=== PATIENT | female | born 1980 | race Caucasian/White ===

== ENCOUNTER 2018-01-25 11:59 | Emergency (ER) | payer OTHER ==
[2018-01-25 12:02] VITALS: BMI 23.2
[2018-01-25 12:03] VITALS: BP 137/94; PULSE 77; RESP 16; TEMP 98; O2SAT 100
--- NOTE | 2018-01-25 12:33 | ED PDOC ---
HPI: Allergic Reaction Time Seen by Provider: 01/25/18 12:18 Chief Complaint (Nursing): Abnormal Skin Integrity Chief Complaint (Provider): Allergic reaction History Per: Patient History/Exam Limitations: no limitations Onset/Duration Of Symptoms: Days (15 days) Current Symptoms Are (Timing): Still Present Additional Complaint(s): Pt. with itching to body and hands for 15 days. Rashes on hands/fingers and not on body. Pt. with no chest pain, dyspnea, weakness, dizziness, pain. No facial itching or rash. No swelling. Pt. denies any new food, drinks, lotion, or new product, but came from [place] 30 days ago. Had no issues for 15 days and then symptoms started. Past Medical History Reviewed: Nursing Documentation, Vital Signs Vital Signs: Last Vital Signs Temp 98 F 01/25/18 12:02 Pulse 77 01/25/18 12:02 Resp 16 01/25/18 12:02 BP 137/94 H 01/25/18 12:02 Pulse Ox 100 01/25/18 12:02 - Medical History PMH: No Chronic Diseases - Surgical History Surgical History: No Surg Hx - Family History Family History: States: Unknown Family Hx - Living Arrangements Living Arrangements: With Family - Home Medications Home Medications: Ambulatory Orders Medication Instructions Recorded DiphenhydrAMINE [Benadryl] 25 mg PO TID PRN 5 Days cap 01/25/18 predniSONE [predniSONE Tab] 20 mg PO BID 5 Days tab 01/25/18 - Allergies Allergies/Adverse Reactions: Allergies Allergy/AdvReac Type Severity Reaction Status Date / Time No Known Allergies Allergy Verified 01/25/18 12:15 Review of Systems Constitutional: Negative for: Fever, Weakness Cardiovascular: Negative for: Chest Pain, Edema, Light Headedness Respiratory: Negative for: Cough, Shortness of Breath Gastrointestinal: Negative for: Nausea, Vomiting, Abdominal Pain, Diarrhea Musculoskeletal: Negative for: Neck Pain, Shoulder Pain, Arm Pain, Back Pain, Hand Pain, Leg Pain Skin: Positive for: Rash Neurological: Negative for: Weakness, Numbness Physical Exam - Reviewed Nursing Documentation Reviewed: Yes Vital Signs Reviewed: Yes - Physical Exam Appears: Positive for: Well, Non-toxic, No Acute Distress Head Exam: Positive for: ATRAUMATIC, NORMAL INSPECTION Skin: Positive for: Warm Eye Exam: Positive for: EOMI, Normal appearance, PERRL ENT: Positive for: Normal ENT Inspection. Negative for: Nasal Congestion, Pharyngeal Erythema, Tonsillar Exudate Neck: Positive for: Normal, Painless ROM, Supple Cardiovascular/Chest: Positive for: Regular Rate, Rhythm Respiratory: Positive for: Normal Breath Sounds Gastrointestinal/Abdominal: Positive for: Normal Exam, Soft. Negative for: Tenderness Back: Positive for: Normal Inspection. Negative for: L CVA Tenderness, R CVA Tenderness Extremity: Positive for: Normal ROM, Other (index and middle finger b/l and R thumb near hand with mild blanching erythema and raised patches in urticarial pattern. No fluctuance or tenderness. No induration. ). Negative for: Tenderness, Pedal Edema Neurologic/Psych: Positive for: Alert, Oriented - ECG O2 Sat by Pulse Oximetry: 100 Pulse Ox Interpretation: Normal - Progress ED Course And Treament: 1240: Pt. likely in contact with something in hands that is different then in [place] causing dermatitis. Will rx prednisone and benadryl. Fu with clinic. AAOx3. Pain free. Disposition - Clinical Impression Clinical Impression: Urticaria - Patient ED Disposition Is Patient to be Admitted: No Counseled Patient/Family Regarding: Diagnosis, Need For Followup, Rx Given - Disposition Referrals: [facility] [Outside] - 01/27/18 Disposition: Routine/Home Disposition Time: 12:41 Condition: STABLE Additional Instructions: Return if not better in 3 days. Prescriptions: DiphenhydrAMINE [Benadryl] 25 mg PO TID PRN 5 Days cap PRN Reason: Itching / Pruritus predniSONE [predniSONE Tab] 20 mg PO BID 5 Days tab Instructions: Trev CALDERÓN)
== END 2018-01-25 12:50 | disposition home or self-care (01) ==
LOC: H.ER 11:59
DX: L50.0 Allergic urticaria (principal)